=== PATIENT | male | born 1985 | race Caucasian/White ===

== ENCOUNTER 2017-08-29 12:30 | Emergency (ER) | payer SELFPAY ==
[~2017-08-29] VITALS: Ht 167.6 cm; Wt 77.0 kg
[2017-08-29 12:30] VITALS: BP 109/73; PULSE 82; RESP 16; TEMP 98.5; O2SAT 96
[2017-08-29 13:34] LABS: AUTOMATED NEUTROPHIL # 2.9 TH/MM3 (1.8-7.7); BASOPHIL % 0.7 % (0.0-2.0); EOSINOPHIL # 0.1 TH/MM3 (0-0.4); EOSINOPHIL % 1.8 % (0.0-4.0); HEMATOCRIT 42.1 % (39.0-51.0); HEMOGLOBIN 14.8 GM/DL (13.0-17.0); LYMPH % 33.1 % (9.0-44.0); LYMPHOCYTE # 1.8 TH/MM3 (1.0-4.8); MEAN CELL VOLUME 90.6 FL (80.0-100.0); MEAN CORPUSCULAR HEMOGLOBIN 31.9 PG (27.0-34.0); MEAN CORPUSCULAR HGB CONC 35.2 % (32.0-36.0); MEAN PLATELET VOLUME 8.4 FL (7.0-11.0); MONO % 10.8 % (0.0-8.0); MONOCYTE # 0.6 TH/MM3 (0-0.9); NEUT % 53.6 % (16.0-70.0); PLATELET COUNT 197 TH/MM3 (150-450); RED BLOOD COUNT 4.65 MIL/MM3 (4.50-5.90); RED CELL DISTRIBUTION WIDTH 12.6 % (11.6-17.2); WHITE BLOOD COUNT 5.4 TH/MM3 (4.0-11.0)
[2017-08-29 13:34] LABS: BILIRUBIN, URINE NEG (NEG); BLOOD, URINE NEG (NEG); GLUCOSE,URINE NEG (NEG); KETONE, URINE NEG (NEG); NITRITE,URINE NEG (NEG); PH, URINE 7.5 (5.0-8.5); URINE COLOR LIGHT-YELLOW (YELLW/STRAW); URINE LEUKOCYTE ESTERASE NEG (NEG)
--- NOTE | 2017-08-29 13:43 | PD ---
HPI Chief Complaint: Pain: Acute or Chronic Time Seen by Provider: 13:27 Travel History International Travel<30 days: No Contact w/Intl Traveler<30days: No Traveled to known affect area: No History of Present Illness HPI 31-year-old male from [place] presents emergency department with bilateral arm "aching and feeling like his veins are swollen". 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 He denies any lower extremity discomfort or problems. Patient states he did some stretching the other day which may have caused his current symptoms. He states no numbness or weakness. He does complains of pain in a swelling feeling in both upper extremities. He did drive approximately 7 hours yesterday which may be a contributing factor. He states the pain actually kept him up last evening. [facility] Social History Alcohol Use: Yes Tobacco Use: No Substance Use: No Allergies-Medications (Allergen,Severity, Reaction): Coded Allergies: No Known Allergies (Unverified , 08/29/17) Reported Meds & Prescriptions Reported Meds & Active Scripts Active No Active Prescriptions or Reported Medications Review of Systems Except as stated in HPI: all other systems reviewed are Neg General / Constitutional: No: Fever Eyes: No: Visual changes HENT: No: Headaches Cardiovascular: No: Chest Pain or Discomfort Respiratory: No: Shortness of Breath Gastrointestinal: No: Abdominal Pain Genitourinary: No: Dysuria Musculoskeletal: Positive: Myalgias, No: Limited ROM, Pain Skin: No Rash Neurologic: No: Weakness Psychiatric: No: Depression Endocrine: No: Polydipsia Hematologic/Lymphatic: No: Easy Bruising Physical Exam Narrative GENERAL: Patient appears in no acute distress. SKIN: Warm and dry. Normal color. Normal turgor. No rash. HEAD: Atraumatic. Normocephalic. EYES: Pupils equal and round. No scleral icterus. No injection or drainage. ENT: No nasal bleeding or discharge. Mucous membranes pink and moist. Pharynx is clear. Airways patent NECK: Trachea midline. Supple and nontender. CARDIOVASCULAR: Regular rate and rhythm. RESPIRATORY: No accessory muscle use. Clear to auscultation. Breath sounds equal bilaterally. GASTROINTESTINAL: Abdomen soft, non-tender, nondistended. Hepatic and splenic margins not palpable. MUSCULOSKELETAL: Extremities without clubbing, cyanosis, or edema. No obvious deformities. Patient is full range of motion and sensation bilaterally. Drying Machine Receiver strength is normal bilaterally. Flexion-extension of both upper extremities in both elbows and shoulders is normal. Pain is not really reproducible by palpation. NEUROLOGICAL: Awake and alert. No obvious cranial nerve deficits. Motor grossly within normal limits. Five out of 5 muscle strength in the arms and legs. Normal speech. PSYCHIATRIC: Appropriate mood and affect; insight and judgment normal. Data Data Last Documented VS Vital Signs Date Time Temp Pulse Resp B/P (MAP) Pulse Ox O2 Delivery O2 Flow Rate FiO2 08/29/17 12:30 98.5 82 16 109/73 (85) 96 Room Air Orders Orders Complete Blood Count With Diff (08/29/17 12:36) Basic Metabolic Panel (Bmp) (08/29/17 12:36) Urinalysis - C+S If Indicated (08/29/17 12:36) Creatine Kinase (Cpk) (08/29/17 12:36) Us Arm Venous Doppler Bilat (08/29/17 13:37) Comprehensive Metabolic Panel (08/29/17 14:06) Labs Laboratory Tests Test 08/29/17 12:41 08/29/17 12:45 White Blood Count 5.4 TH/MM3 Red Blood Count 4.65 MIL/MM3 Hemoglobin 14.8 GM/DL Hematocrit 42.1 % Mean Corpuscular Volume 90.6 FL Mean Corpuscular Hemoglobin 31.9 PG Mean Corpuscular Hemoglobin Concent 35.2 % Red Cell Distribution Width 12.6 % Platelet Count 197 TH/MM3 Mean Platelet Volume 8.4 FL Neutrophils (%) (Auto) 53.6 % Lymphocytes (%) (Auto) 33.1 % Monocytes (%) (Auto) 10.8 % Eosinophils (%) (Auto) 1.8 % Basophils (%) (Auto) 0.7 % Neutrophils # (Auto) 2.9 TH/MM3 Lymphocytes # (Auto) 1.8 TH/MM3 Monocytes # (Auto) 0.6 TH/MM3 Eosinophils # (Auto) 0.1 TH/MM3 Basophils # (Auto) 0.0 TH/MM3 CBC Comment DIFF FINAL Differential Comment Blood Urea Nitrogen 13 MG/DL Creatinine 0.97 MG/DL Random Glucose 87 MG/DL Calcium Level 9.5 MG/DL Sodium Level 138 MEQ/L Potassium Level 4.1 MEQ/L Chloride Level 103 MEQ/L Carbon Dioxide Level 29.2 MEQ/L Anion Gap 6 MEQ/L Estimat Glomerular Filtration Rate 90 ML/MIN Total Creatine Kinase 132 U/L Urine Color LIGHT-YELLOW Urine Turbidity CLEAR Urine pH 7.5 Urine Specific [place] 1.010 Urine Protein NEG mg/dL Urine Glucose (UA) NEG mg/dL Urine Ketones NEG mg/dL Urine Occult Blood NEG Urine Nitrite NEG Urine Bilirubin NEG Urine Urobilinogen LESS THAN 2.0 MG/DL Urine Leukocyte Esterase NEG Urine RBC LESS THAN 1 /hpf Microscopic Urinalysis Comment CULT NOT INDICATED MDM Medical Decision Making Medical Screen Exam Complete: Yes Emergency Medical Condition: Yes Differential Diagnosis Myalgia. Line disease. DVT. Narrative Course Labs ordered in triage including CBC, CMP, and urinalysis. Ultrasound of both upper extremities is ordered. Labs are unremarkable. Ultrasound shows no acute findings. Patient is felt to have generalized myalgias. I discussed the possibility of Lyme disease which is low on my list, but may be worth following up if symptoms persist when he returns to [place]. Patient is given ibuprofen 800 mg 3 times daily #30. Patient can follow-up if symptoms worsen as needed. Diagnosis Primary Impression: Myalgia Referrals: Primary Care Physician Patient Instructions: General Instructions Additional Instructions: Labs are unremarkable. Ultrasound shows no acute findings. Patient is felt to have generalized myalgias. I discussed the possibility of Lyme disease which is low on my list, but may be worth following up if symptoms persist when he returns to [place]. Patient is given ibuprofen 800 mg 3 times daily #30. Patient can follow-up if symptoms worsen as needed. Med/Other Pt SpecificInfo: Prescription(s) given Scripts No Active Prescriptions or Reported Meds Disposition: DISCHARGE HOME Condition: Stable Jose Jones Aug 29, 2017 13:43
[2017-08-29 13:49] LABS: BICARBONATE 29.2 MEQ/L (21.0-32.0); CALCIUM 9.5 MG/DL (8.5-10.1); CREATININE 0.97 MG/DL (0.60-1.30)
--- NOTE | 2017-08-29 14:50 | PD ---
Physical Exam Date Seen by Provider: Aug 29, 2017 Narrative The patient presents with the chief complaint of feeling tight in both upper extremities. Data Data Last Documented VS Vital Signs Date Time Temp Pulse Resp B/P (MAP) Pulse Ox O2 Delivery O2 Flow Rate FiO2 08/29/17 12:30 98.5 82 16 109/73 (85) 96 Room Air Orders Orders Complete Blood Count With Diff (08/29/17 12:36) Basic Metabolic Panel (Bmp) (08/29/17 12:36) Urinalysis - C+S If Indicated (08/29/17 12:36) Creatine Kinase (Cpk) (08/29/17 12:36) Us Arm Venous Doppler Bilat (08/29/17 13:37) Comprehensive Metabolic Panel (08/29/17 14:06) Labs Laboratory Tests Test 08/29/17 12:41 08/29/17 12:45 White Blood Count 5.4 TH/MM3 Red Blood Count 4.65 MIL/MM3 Hemoglobin 14.8 GM/DL Hematocrit 42.1 % Mean Corpuscular Volume 90.6 FL Mean Corpuscular Hemoglobin 31.9 PG Mean Corpuscular Hemoglobin Concent 35.2 % Red Cell Distribution Width 12.6 % Platelet Count 197 TH/MM3 Mean Platelet Volume 8.4 FL Neutrophils (%) (Auto) 53.6 % Lymphocytes (%) (Auto) 33.1 % Monocytes (%) (Auto) 10.8 % Eosinophils (%) (Auto) 1.8 % Basophils (%) (Auto) 0.7 % Neutrophils # (Auto) 2.9 TH/MM3 Lymphocytes # (Auto) 1.8 TH/MM3 Monocytes # (Auto) 0.6 TH/MM3 Eosinophils # (Auto) 0.1 TH/MM3 Basophils # (Auto) 0.0 TH/MM3 CBC Comment DIFF FINAL Differential Comment Blood Urea Nitrogen 13 MG/DL Creatinine 0.97 MG/DL Random Glucose 87 MG/DL Calcium Level 9.5 MG/DL Sodium Level 138 MEQ/L Potassium Level 4.1 MEQ/L Chloride Level 103 MEQ/L Carbon Dioxide Level 29.2 MEQ/L Anion Gap 6 MEQ/L Estimat Glomerular Filtration Rate 90 ML/MIN Total Creatine Kinase 132 U/L Urine Color LIGHT-YELLOW Urine Turbidity CLEAR Urine pH 7.5 Urine Specific [place] 1.010 Urine Protein NEG mg/dL Urine Glucose (UA) NEG mg/dL Urine Ketones NEG mg/dL Urine Occult Blood NEG Urine Nitrite NEG Urine Bilirubin NEG Urine Urobilinogen LESS THAN 2.0 MG/DL Urine Leukocyte Esterase NEG Urine RBC LESS THAN 1 /hpf Microscopic Urinalysis Comment CULT NOT INDICATED MDM Supervised Visit with ELMO: Yes Narrative Course I, Dr. Jo, have reviewed the advance practice practitioner's documentation and am in agreement, met with the patient face to face, made the diagnosis, and the medical decision making was done by me. *My assessment and Findings: Patient's arms are soft. They have normal color. Normal skin temperature. Normal pulses. Normal capillary refill. Please see Demetrio Jones PA-C's note for results of laboratory and radiographic evaluation, ED course, final diagnosis and disposition Scripts No Active Prescriptions or Reported Meds Condition: Stable Whitney Jo MD Aug 29, 2017 14:50
--- NOTE | 2017-08-29 15:12 | RADRPT ---
EXAM DATE/TIME: 08/29/2017 14:13 [facility] COMPARISON: No previous studies available for comparison. INDICATIONS : Bilateral arm pain. MEDICAL HISTORY : SURGICAL HISTORY : ENCOUNTER: Initial ACUITY: 1 day PAIN SCORE: 5/10 LOCATION: Bilateral arms. FINDINGS: RIGHT UPPER EXTREMITY: There is spontaneous flow documented in the brachial, basilic, cephalic, axillary, and subclavian vei ns. The vessels are compressible and augmentation response is documented. No filling defects are se en. The flow is phasic with respiration. Direction of flow in the jugular vein is caudal. LEFT UPPER EXTREMITY: There is spontaneous flow documented in the brachial, basilic, cephalic, axillary, and subclavian vei ns. The vessels are compressible and augmentation response is documented. No filling defects are se en. The flow is phasic with respiration. Direction of flow in the jugular vein is caudal. CONCLUSION: Normal examination. Daniel Cooper Jr., MD on August 29, 2017 at 15:08 Board Certified Radiologist. This report was verified electronically.
[2017-08-29] MEDS ORDERED: IBUP1TAB7 PO (15:25)
[2017-08-30 01:34] LABS: ALBUMIN 4.5 GM/DL (3.4-5.0); ALT (GPT) 77 U/L (12-78); AST (GOT) 32 U/L (15-37); BICARBONATE 26.5 MEQ/L (21.0-32.0); BLOOD UREA NITROGEN 14 MG/DL (7-18); CALCIUM 9.3 MG/DL (8.5-10.1); CHLORIDE 103 MEQ/L (98-107); CREATININE 0.99 MG/DL (0.60-1.30); GLOMERULAR FILTRATION RATE 88 ML/MIN (>89); GLUCOSE,RANDOM 88 MG/DL (74-106); SODIUM (NA) 139 MEQ/L (136-145)
[2017-08-30 01:36] LABS: ALKALINE PHOSPHATASE 43 U/L (45-117); TOTAL BILIRUBIN ADULT 0.5 MG/DL (0.2-1.0); TOTAL PROTEIN 8.1 GM/DL (6.4-8.2)
== END 2017-08-29 15:41 | disposition home or self-care (01) ==
LOC: NEPD 12:30
DX: M79.1 Myalgia (principal)
CPT/HCPCS: 80048; 80053; 81001; 82550; 85025; 93970